=== PATIENT | female | born 1975 | race Asian ===

== ENCOUNTER 2017-01-08 20:54 | Inpatient (IN) | payer BC, OTHER ==
[~2017-01-08] VITALS: Ht 165.1 cm; Wt 49.4 kg
[2017-01-08 21:04] VITALS: BP_SYST 135
[2017-01-08] MEDS ORDERED: LORazepam 2 MG/ML VIAL (FOR ER USE) ONE (21:21)
[2017-01-08] MEDS ORDERED: LORazepam 2 MG/ML VIAL IM ONE (21:30)
[2017-01-08] MEDS ORDERED: FOLIC ACID 1 MG, THIAMINE HCL 100 MG, MAGNESIUM SULFATE 1 GM, MVI 10 ML in NACL 0.9% 1,... IV ONE (23:00)
[2017-01-08 23:04] LABS: BASOPHILS # (AUTO) 0.2 K/uL (0.0-0.2); BASOPHILS % (AUTO) 1.4 % (0.0-2.0); HEMATOCRIT 44.8 % (36-48); HEMOGLOBIN 14.7 g/dL (12.0-16.0); LYMPHOCYTES # (AUTO) 1.5 K/uL (1.0-5.5); LYMPHOCYTES % (AUTO) 8.7 % (20.5-51.5); MEAN CORPUSCULAR HEMOGLOBIN 31 pg (27-31); MEAN CORPUSCULAR HGB CONC 33 % (32-36); MEAN CORPUSCULAR VOLUME 93 fL (79.0-98.0); MONOCYTES # (AUTO) 0.5 K/uL (0.0-1.0); MONOCYTES % (AUTO) 2.9 % (1.7-9.3); NEUTROPHILS # (AUTO) 15.1 K/uL (1.8-7.7); PLATELET COUNT (AUTO) 221 K/uL (130-430); RED BLOOD CELL COUNT(AUTO) 4.83 MIL/uL (4.2-6.2); RED CELL DISTRIBUTION WIDTH 12.2 % (9.0-15.0); WHITE BLOOD COUNT (AUTO) 17.3 K/uL (4.8-10.8)
[2017-01-08] MEDS ORDERED: THIAMINE HCL 100 MG/ML VIAL ONE (23:12)
[2017-01-08] MEDS ORDERED: MAGNESIUM SULFATE 1 GM/2 ML VIAL ONE (23:12)
[2017-01-08] MEDS ORDERED: FOLIC ACID 5 MG/ML VIAL IV ONE (23:12)
[2017-01-08] MEDS ORDERED: MVI 10 ML VIAL IV ONE (23:12)
[2017-01-08 23:24] LABS: BILIRUBIN,URINE NEGATIVE (NEGATIVE); BLOOD, URINE NEGATIVE (NEGATIVE); CLARITY/URINE HAZY (CLEAR); COLOR,URINE AMBER (YELLOW); GLUCOSE,URINE NEGATIVE (NEGATIVE); KETONES,URINE 3+ (NEGATIVE); LEUKOCYTE ESTERASE ,URINE TRACE (NEGATIVE); NITRITE, URINE NEGATIVE (NEGATIVE); PH,URINE 6.5 (5.0-8.0); PROTEIN URINE 2+ (NEGATIVE); UROBILINOGEN,URINE 0.2 (0.2-1.0)
[2017-01-08 23:39] LABS: ALBUMIN 3.9 g/dL (3.4-4.8); CALCIUM 9.1 mg/dL (8.4-11.0); CREATININE 0.85 mg/dL (0.55-1.30); POTASSIUM 3.8 mmol/L (3.5-5.1); TOTAL BILIRUBIN 0.5 mg/dL (0.0-1.0)
[2017-01-08 23:48] LABS: BENZODIAZEPINE, URINE POSITIVE (NEG <=150); CANNABINOID, URINE POSITIVE (NEG <=50)
[2017-01-08 23:49] LABS: BARBITURATE, URINE NEGATIVE (NEG <=200); COCAINE, URINE NEGATIVE (NEG <=150); METHAMPHETAMINES SCREEN,URINE NEGATIVE (NEG <=500); OPIATE, URINE NEGATIVE (NEG <=100); PHENCYCLIDINE SCREEN,URINE NEGATIVE (NEG <=25); UR TRICYCLIC ANTIDEPRESSANTS POSITIVE (NEG <=300); URINE AMPHETAMINE NEGATIVE (NEG <=500); URINE METHADONE NEGATIVE (NEG <=200); URINE OXYCODONE SCREEN NEGATIVE (NEG <=100); URINE PROPOXYPHENE SCREEN NEGATIVE (NEG <=300)
[2017-01-09 00:12] LABS: BACTERIA,URINE MODERATE /HPF (None Seen); MUCUS,URINE None Seen /LPF (None Seen); RBC,URINE 0-3 /HPF (0-3); WBC,URINE 0-3 /HPF (0-3)
[2017-01-09 00:36] LABS: INR 1.2 (0.8-1.2); PROTHROMBIN TIME 12.6 SECS (9.5-12.5)
[2017-01-09] MEDS ORDERED: NORT10CA PO (01:07)
[2017-01-09] MEDS ORDERED: DULO20CA PO (01:07)
[2017-01-09] MEDS ORDERED: BUPR1FIL SL (01:07)
[2017-01-09] MEDS ORDERED: cefTRIAXone 1 GM VIAL ONE (01:12)
[2017-01-09] MEDS ORDERED: cefTRIAXone 1 GM in D5W 50 ML IV ONE (01:15)
[2017-01-09 01:50] VITALS: BP_SYST 120
[2017-01-09] MEDS ORDERED: NACL 0.9% 1,000 ML IV ONE (02:00)
[2017-01-09 04:36] VITALS: BP_SYST 119
[2017-01-09] MEDS: NACL 0.9% 1,000 ML IV SCH ×2 (04:45→11:10)
[2017-01-09 08:15] VITALS: BP_SYST 131
[2017-01-09] MEDS ORDERED: POTASSIUM CHLORIDE 20 MEQ TAB.PRT.SR PO PRN (09:00)
[2017-01-09] MEDS ORDERED: DOCUSATE SODIUM 100 MG CAPSULE PO PRN (09:00)
[2017-01-09] MEDS ORDERED: MAGNESIUM SULFATE 50 ML IV PRN (09:00)
[2017-01-09] MEDS ORDERED: ZOLPIDEM TARTRATE 5 MG TABLET PO PRN (09:00)
[2017-01-09] MEDS ORDERED: ONDANSETRON HCL 4 MG/2 ML VIAL IVP PRN (09:00)
[2017-01-09] MEDS: cefTRIAXone 1 GM in D5W 50 ML IV SCH (11:09)
[2017-01-09 12:07] VITALS: BP_SYST 125
[2017-01-09] MEDS: DULoxetine HCL 20 MG CAPSULE.DR PO SCH (16:00)
[2017-01-09] MEDS: MORPHINE 2 MG/ML INJ. SYRINGE IVP PRN ×2 (16:00→21:30)
[2017-01-09 16:18] VITALS: BP_SYST 119
[2017-01-09] MEDS: LORazepam 2 MG/ML VIAL IVP PRN ×2 (18:06→20:42)
[2017-01-09 20:00] VITALS: BP_SYST 120
[2017-01-09] MEDS: NORTRIPTYLINE HCL 10 MG CAPSULE PO SCH (20:41)
[2017-01-10] MEDS: LORazepam 2 MG/ML VIAL IVP PRN ×3 (01:51→22:00)
[2017-01-10] MEDS: NACL 0.9% 1,000 ML IV SCH ×3 (01:51→17:03)
[2017-01-10] MEDS: MORPHINE 2 MG/ML INJ. SYRINGE IVP PRN ×4 (03:00→22:01)
[2017-01-10 03:01] VITALS: BP_SYST 129
[2017-01-10 04:00] VITALS: BP_SYST 125
[2017-01-10 07:53] LABS: BASOPHILS # (AUTO) 0.1 K/uL (0.0-0.2); BASOPHILS % (AUTO) 0.6 % (0.0-2.0); EOSINOPHILS # (AUTO) 0.2 K/uL (0.0-0.4); EOSINOPHILS % (AUTO) 1.6 % (0.0-4.0); HEMATOCRIT 40.4 % (36-48); HEMOGLOBIN 13.6 g/dL (12.0-16.0); LYMPHOCYTES # (AUTO) 3.8 K/uL (1.0-5.5); LYMPHOCYTES % (AUTO) 32.3 % (20.5-51.5); MEAN CORPUSCULAR HEMOGLOBIN 32 pg (27-31); MEAN CORPUSCULAR HGB CONC 34 % (32-36); MEAN CORPUSCULAR VOLUME 95 fL (79.0-98.0); MONOCYTES # (AUTO) 0.8 K/uL (0.0-1.0); NEUTROPHILS # (AUTO) 6.9 K/uL (1.8-7.7); NEUTROPHILS % (AUTO) 58.5 % (40.0-70.0); PLATELET COUNT (AUTO) 147 K/uL (130-430); RED BLOOD CELL COUNT(AUTO) 4.27 MIL/uL (4.2-6.2); RED CELL DISTRIBUTION WIDTH 12.6 % (9.0-15.0); WHITE BLOOD COUNT (AUTO) 11.8 K/uL (4.8-10.8)
[2017-01-10 08:05] LABS: CALCIUM 8.4 mg/dL (8.4-11.0); CREATININE 0.64 mg/dL (0.55-1.30); POTASSIUM 3.6 mmol/L (3.5-5.1)
[2017-01-10 08:20] VITALS: BP_SYST 149
[2017-01-10] MEDS: QUEtiapine FUMARATE 25 MG TABLET PO SCH ×3 (10:22→22:01)
[2017-01-10] MEDS: DULoxetine HCL 20 MG CAPSULE.DR PO SCH (10:22)
[2017-01-10] MEDS: cefTRIAXone 1 GM in D5W 50 ML IV SCH (11:29)
[2017-01-10 12:42] VITALS: BP_SYST 143
[2017-01-10 16:36] VITALS: BP_SYST 139
[2017-01-10 20:00] VITALS: BP_SYST 114
[2017-01-10] MEDS: NORTRIPTYLINE HCL 10 MG CAPSULE PO SCH (22:01)
[2017-01-11] VITALS: BP_SYST 144
[2017-01-11 04:00] VITALS: BP_SYST 141
[2017-01-11] MEDS: NACL 0.9% 1,000 ML IV SCH ×2 (05:21→16:03)
[2017-01-11] MEDS: MORPHINE 2 MG/ML INJ. SYRINGE IVP PRN ×3 (05:22→20:08)
[2017-01-11 07:19] LABS: BASOPHILS % (AUTO) 0.5 % (0.0-2.0); EOSINOPHILS # (AUTO) 0.2 K/uL (0.0-0.4); EOSINOPHILS % (AUTO) 2.5 % (0.0-4.0); HEMOGLOBIN 12.2 g/dL (12.0-16.0); LYMPHOCYTES # (AUTO) 2.3 K/uL (1.0-5.5); LYMPHOCYTES % (AUTO) 35.2 % (20.5-51.5); MEAN CORPUSCULAR HEMOGLOBIN 31 pg (27-31); MEAN CORPUSCULAR HGB CONC 34 % (32-36); MEAN CORPUSCULAR VOLUME 93 fL (79.0-98.0); MONOCYTES # (AUTO) 0.4 K/uL (0.0-1.0); MONOCYTES % (AUTO) 6.7 % (1.7-9.3); NEUTROPHILS # (AUTO) 3.7 K/uL (1.8-7.7); NEUTROPHILS % (AUTO) 55.1 % (40.0-70.0); PLATELET COUNT (AUTO) 131 K/uL (130-430); RED BLOOD CELL COUNT(AUTO) 3.88 MIL/uL (4.2-6.2); RED CELL DISTRIBUTION WIDTH 12.4 % (9.0-15.0); WHITE BLOOD COUNT (AUTO) 6.6 K/uL (4.8-10.8)
[2017-01-11 07:41] LABS: ALBUMIN 3.3 g/dL (3.4-4.8); BILIRUBIN,DIRECT 0.1 mg/dL (0.0-0.3); CREATININE 0.53 mg/dL (0.55-1.30); POTASSIUM 3.8 mmol/L (3.5-5.1); TOTAL BILIRUBIN 0.4 mg/dL (0.0-1.0)
[2017-01-11 08:00] VITALS: BP_SYST 143
[2017-01-11] MEDS: DULoxetine HCL 20 MG CAPSULE.DR PO SCH (08:35)
[2017-01-11] MEDS: QUEtiapine FUMARATE 25 MG TABLET PO SCH ×3 (08:36→20:07)
[2017-01-11] MEDS: LORazepam 2 MG/ML VIAL IVP PRN ×2 (08:37→22:30)
[2017-01-11] MEDS: cefTRIAXone 1 GM in D5W 50 ML IV SCH (10:23)
[2017-01-11 11:53] VITALS: BP_SYST 135
[2017-01-11 16:01] VITALS: BP_SYST 153
[2017-01-11] MEDS: NORTRIPTYLINE HCL 10 MG CAPSULE PO SCH (20:07)
[2017-01-11 23:52] VITALS: BP_SYST 150
[2017-01-12] MEDS: NACL 0.9% 1,000 ML IV SCH (03:41)
[2017-01-12] MEDS: MORPHINE 2 MG/ML INJ. SYRINGE IVP PRN ×3 (04:45→11:02)
[2017-01-12] MEDS: LORazepam 2 MG/ML VIAL IVP PRN (05:58)
[2017-01-12 06:40] LABS: BASOPHILS % (AUTO) 0.7 % (0.0-2.0); EOSINOPHILS # (AUTO) 0.2 K/uL (0.0-0.4); EOSINOPHILS % (AUTO) 3.1 % (0.0-4.0); HEMOGLOBIN 11.5 g/dL (12.0-16.0); LYMPHOCYTES # (AUTO) 2.5 K/uL (1.0-5.5); MEAN CORPUSCULAR HEMOGLOBIN 32 pg (27-31); MEAN CORPUSCULAR HGB CONC 34 % (32-36); MEAN CORPUSCULAR VOLUME 94 fL (79.0-98.0); MONOCYTES # (AUTO) 0.4 K/uL (0.0-1.0); MONOCYTES % (AUTO) 6.2 % (1.7-9.3); NEUTROPHILS # (AUTO) 3.7 K/uL (1.8-7.7); PLATELET COUNT (AUTO) 121 K/uL (130-430); RED BLOOD CELL COUNT(AUTO) 3.64 MIL/uL (4.2-6.2); RED CELL DISTRIBUTION WIDTH 12.1 % (9.0-15.0); WHITE BLOOD COUNT (AUTO) 6.8 K/uL (4.8-10.8)
[2017-01-12 06:50] LABS: PROTHROMBIN TIME 10.5 SECS (9.5-12.5)
[2017-01-12 06:54] LABS: CALCIUM 7.8 mg/dL (8.4-11.0); CREATININE 0.53 mg/dL (0.55-1.30); POTASSIUM 4.1 mmol/L (3.5-5.1)
[2017-01-12 07:29] LABS: TOTAL IRON BIND. CAPACITY 160 ug/dL (250-450)
[2017-01-12 08:00] VITALS: BP_SYST 147
[2017-01-12] MEDS: DULoxetine HCL 20 MG CAPSULE.DR PO SCH (08:57)
[2017-01-12] MEDS: QUEtiapine FUMARATE 25 MG TABLET PO SCH (08:58)
[2017-01-12] MEDS: cefTRIAXone 1 GM in D5W 50 ML IV SCH (11:01)
[2017-01-12 11:20] VITALS: BP_SYST 150
[2017-01-12 12:00] VITALS: BP_SYST 150
[2017-01-13 07:21] LABS: HEPATITIS A AB, IgM Negative (Negative); HEPATITIS B CORE AB, IgM Negative (Negative); HEPATITIS B SURFACE AG Negative (Negative)
[2017-01-13 20:11] LABS: FERRITIN 329 ng/mL (15-150)
== END 2017-01-12 13:00 | disposition home or self-care (01) | DRG 872 ==
LOC: SED 20:54 → STU 01-09 01:22
PROVIDERS: ADMIT General Practice; ATTEND General Practice
DX: A41.9 Sepsis, unspecified organism (principal); E44.0 Moderate protein-calorie malnutrition; K72.90 Hepatic failure, unspecified without coma; N39.0 Urinary tract infection, site not specified; Z68.1 Body mass index [BMI] 19.9 or less, adult; F32.9 Major depressive disorder, single episode, unspecified; F41.9 Anxiety disorder, unspecified; G62.9 Polyneuropathy, unspecified; F14.90 Cocaine use, unspecified, uncomplicated; F12.90 Cannabis use, unspecified, uncomplicated; F19.10 Other psychoactive substance abuse, uncomplicated; E78.5 Hyperlipidemia, unspecified
CPT/HCPCS: 36415; 71010; 76700-TC; 80048; 80053; 80074; 80076; 80307; 81000-TC; 82140-TC; 82390; 82550-TC; 82728; 83516; 83540-TC; 83550-TC; 83605; 83735-TC; 84702-TC; 85025; 85610-TC; 85730-TC; 86256; 87040-TC; 87086; 93005; 96365; 96367; 99285; G0480; G0481; J0696; J2060; J2270; J3411; J3475; J3490; J7030; J7060

== ENCOUNTER 2017-04-08 12:07 | Inpatient (IN) | payer BC ==
[~2017-04-08] VITALS: Ht 167.6 cm; Wt 60.8 kg
[~2017-04-08 12:07] MED LIST: BUPR1FIL SL; DULO20CA PO; NORT10CA PO
[2017-04-08 12:14] VITALS: BP_SYST 92
[2017-04-08] MEDS ORDERED: NACL 0.9% 1,000 ML IV SCH (12:48)
[2017-04-08] MEDS ORDERED: KETOROLAC TROMETHAMINE 30 MG VIAL IVP ONE (13:00)
[2017-04-08] MEDS ORDERED: DIPH-TET-PERTUS Vaccine 0.5 ML VIAL (ADACEL) I.M. ONE (13:00)
[2017-04-08] MEDS ORDERED: VANCOMYCIN HCL 1,000 MG in D5W 250 ML IV ONE (13:00)
[2017-04-08 13:01] LABS: HEMATOCRIT 31.8 % (36-48); RED CELL DISTRIBUTION WIDTH 12.3 % (9.0-15.0)
[2017-04-08] MEDS ORDERED: VANCOMYCIN HCL 1000 MG/VIAL IV ONE (13:01)
[2017-04-08 13:08] LABS: HEMOGLOBIN 10.6 g/dL (12.0-16.0); MEAN CORPUSCULAR HEMOGLOBIN 31 pg (27-31); MEAN CORPUSCULAR HGB CONC 33 % (32-36); MEAN CORPUSCULAR VOLUME 92 fL (79.0-98.0); PLATELET COUNT (AUTO) 250 K/uL (130-430); RED BLOOD CELL COUNT(AUTO) 3.47 MIL/uL (4.2-6.2)
[2017-04-08 13:09] LABS: CLARITY/URINE SLHAZY (CLEAR); COLOR,URINE YELLOW (YELLOW); PH,URINE 5.5 (5.0-8.0)
[2017-04-08 13:10] LABS: BILIRUBIN,URINE NEGATIVE (NEGATIVE); BLOOD, URINE NEGATIVE (NEGATIVE); GLUCOSE,URINE 3+ (NEGATIVE); KETONES,URINE NEGATIVE (NEGATIVE); LEUKOCYTE ESTERASE ,URINE NEGATIVE (NEGATIVE); NITRITE, URINE NEGATIVE (NEGATIVE); PROTEIN URINE NEGATIVE (NEGATIVE); UROBILINOGEN,URINE 0.2 (0.2-1.0)
[2017-04-08 13:17] LABS: BACTERIA,URINE FEW /HPF (None Seen); WBC,URINE 0-3 /HPF (0-3)
[2017-04-08 13:21] LABS: CALCIUM OXALATE CRYSTALS,UR None Seen /HPF (None Seen); CALCIUM PHOSPHATE CRYSTALS,UR None Seen /HPF (None Seen); COARSE GRANULAR CASTS,URINE None Seen /LPF (None Seen); FINE GRANULAR CASTS,URINE None Seen /LPF (None Seen); HYALINE CASTS, URINE None Seen /LPF (None Seen); MUCUS,URINE None Seen /LPF (None Seen); OTHER CASTS, URINE None Seen /LPF (None Seen); OTHER CRYSTALS,URINE None Seen /HPF (None Seen); TRICHOMONAS,URINE None Seen /HPF (None Seen); TRIPLE PHOSPHATE CRYSTAL,UR None Seen /HPF (None Seen); URIC ACID CRYSTALS,URINE None Seen /HPF (None Seen); URINE AMORPHOUS PHOSPHATES None Seen /HPF (None Seen); URINE AMORPHOUS URATE None Seen /HPF (None Seen); WAXY CASTS,URINE None Seen /LPF (None Seen); YEAST,URINE None Seen /HPF (None Seen)
[2017-04-08 13:23] LABS: ALBUMIN 2.6 g/dL (3.4-4.8); CALCIUM 8.2 mg/dL (8.4-11.0); CREATININE 1.2 mg/dL (0.55-1.30); POTASSIUM 3.9 mmol/L (3.5-5.1); TOTAL BILIRUBIN 0.2 mg/dL (0.0-1.0)
[2017-04-08 13:29] LABS: PROTHROMBIN TIME 9.9 SECS (9.5-12.5)
[2017-04-08] MEDS ORDERED: NACL 0.9% 1,000 ML IV ONE (13:30)
[2017-04-08 13:37] LABS: BAND % (MANUAL) 3 % (0-6); BASOPHILS % (MANUAL) 0 % (0-2); EOSINOPHILS % (MANUAL) 0 % (0-7); LYMPHOCYTES % (MANUAL) 10 % (20-46); MONOCYTES % (MANUAL) 5 % (0-11)
[2017-04-08] MEDS ORDERED: DULO60CA41 PO (14:10)
[2017-04-08] MEDS ORDERED: QUET400T PO (14:10)
[2017-04-08] MEDS ORDERED: SER25 PO (14:10)
[2017-04-08] MEDS ORDERED: MORPHINE 2 MG/ML INJ. SYRINGE IVP ONE (14:45)
[2017-04-08] MEDS ORDERED: INSULIN ASPART 100 UNITS/ML, 10 ML VIAL SUBCUT ONE (15:00)
[2017-04-08] MEDS ORDERED: DEXTROSE 50% JECT 50 ML DISP.SYRIN IVP PRN (15:00)
[2017-04-08] MEDS ORDERED: INSULIN REGULAR, HUMAN 10 UNITS/0.1 ML INJ IVP ONE (15:00)
[2017-04-08] MEDS ORDERED: INSULIN REGULAR, HUMAN 100 UNITS/ML, 10 ML VIAL (novoLIN R) SUBCUT PRN (15:00)
[2017-04-08 15:51] VITALS: BP_SYST 102
[2017-04-08] MEDS ORDERED: LORazepam 1 MG TABLET PO PRN (16:45)
[2017-04-08] MEDS ORDERED: ONDANSETRON HCL 4 MG/2 ML VIAL IVP PRN (16:45)
[2017-04-08] MEDS ORDERED: ACETAMINOPHEN 650 MG/20.3 ML UDC PO PRN (16:45)
[2017-04-08] MEDS ORDERED: HYDROcodone/ACETAMIN 5-325 MG TAB (NORCO/ VICODIN) PO PRN (17:00)
[2017-04-08] MEDS ORDERED: metroNIDAZOLE 500 mg/NS 100 ML IV SCH (17:00)
[2017-04-08] MEDS ORDERED: FAMOTIDINE 20 MG TABLET PO ONE (17:15)
[2017-04-08] MEDS: POTASSIUM CHLORIDE 10 MEQ in NACL 0.9% 1,000 ML IV SCH (17:28)
[2017-04-08] MEDS: HYDROcodone/ACETAMIN 10-325 MG TAB PO PRN ×2 (17:49→23:59)
[2017-04-08 18:15] VITALS: BP_SYST 109
[2017-04-08] MEDS: MORPHINE 2 MG/ML INJ. SYRINGE IVP PRN (19:06)
[2017-04-08 20:01] VITALS: BP_SYST 112
[2017-04-08] MEDS ORDERED: CLINDAMYCIN 600 mg/50mL D5W 100 ML IV ONE (20:53)
[2017-04-08] MEDS ORDERED: CEFEPIME 1 GM/VIAL (MAXIPIME) ONE (20:54)
[2017-04-08] MEDS ORDERED: QUEtiapine FUMARATE 100 MG TABLET PO SCH (21:00)
[2017-04-08] MEDS: DULoxetine HCL 30 MG CAPSULE.DR (CYMBALTA) PO SCH (21:00)
[2017-04-08] MEDS: QUEtiapine FUMARATE 25 MG TABLET PO SCH (21:21)
[2017-04-08] MEDS: CEFEPIME 2 GM in D5W 100 ML IV SCH (21:21)
[2017-04-08] MEDS: INSULIN ASPART 100 UNITS/ML, 10 ML VIAL (NovoLOG) SUBCUT PRN (21:25)
[2017-04-08] MEDS: CLINDAMYCIN 600 MG in D5W 50 ML IV SCH (23:58)
[2017-04-09 00:14] VITALS: BP_SYST 106
[2017-04-09] MEDS: MORPHINE 2 MG/ML INJ. SYRINGE IVP PRN ×3 (02:18→13:14)
[2017-04-09] MEDS: POTASSIUM CHLORIDE 10 MEQ in NACL 0.9% 1,000 ML IV SCH ×2 (05:18→08:49)
[2017-04-09] MEDS: CLINDAMYCIN 600 MG in D5W 50 ML IV SCH ×4 (06:01→23:43)
[2017-04-09] MEDS: HYDROcodone/ACETAMIN 10-325 MG TAB PO PRN ×3 (06:02→23:43)
[2017-04-09] MEDS: INSULIN ASPART 100 UNITS/ML, 10 ML VIAL (NovoLOG) SUBCUT PRN ×3 (06:05→21:00)
[2017-04-09 07:15] LABS: BASOPHILS % (AUTO) 0.2 % (0.0-2.0); EOSINOPHILS # (AUTO) 0.2 K/uL (0.0-0.4); EOSINOPHILS % (AUTO) 1.1 % (0.0-4.0); HEMATOCRIT 30.8 % (36-48); HEMOGLOBIN 10.2 g/dL (12.0-16.0); LYMPHOCYTES # (AUTO) 1.4 K/uL (1.0-5.5); LYMPHOCYTES % (AUTO) 9.9 % (20.5-51.5); MEAN CORPUSCULAR HEMOGLOBIN 31 pg (27-31); MEAN CORPUSCULAR HGB CONC 33 % (32-36); MEAN CORPUSCULAR VOLUME 92 fL (79.0-98.0); MONOCYTES % (AUTO) 6.8 % (1.7-9.3); NEUTROPHILS # (AUTO) 11.5 K/uL (1.8-7.7); PLATELET COUNT (AUTO) 265 K/uL (130-430); RED BLOOD CELL COUNT(AUTO) 3.34 MIL/uL (4.2-6.2); RED CELL DISTRIBUTION WIDTH 12.7 % (9.0-15.0); WHITE BLOOD COUNT (AUTO) 14.1 K/uL (4.8-10.8)
[2017-04-09 07:44] LABS: ALBUMIN 2.1 g/dL (3.4-4.8); BILIRUBIN,DIRECT 0.1 mg/dL (0.0-0.3); CREATININE 0.73 mg/dL (0.55-1.30); POTASSIUM 4.7 mmol/L (3.5-5.1); THYROID STIMULATING HORMONE 0.18 uIu/mL (0.34-4.82); TOTAL BILIRUBIN 0.1 mg/dL (0.0-1.0)
[2017-04-09 07:59] VITALS: BP_SYST 120
[2017-04-09] MEDS: DULoxetine HCL 30 MG CAPSULE.DR (CYMBALTA) PO SCH (09:18)
[2017-04-09] MEDS: QUEtiapine FUMARATE 25 MG TABLET PO SCH ×2 (09:19→20:46)
[2017-04-09] MEDS: CEFEPIME 2 GM in D5W 100 ML IV SCH ×2 (09:19→20:52)
[2017-04-09] MEDS: FAMOTIDINE 20 MG TABLET PO SCH (09:19)
[2017-04-09 10:10] LABS: BARBITURATE, URINE NEGATIVE (NEG <=200); BENZODIAZEPINE, URINE NEGATIVE (NEG <=150); CANNABINOID, URINE POSITIVE (NEG <=50); COCAINE, URINE NEGATIVE (NEG <=150); METHAMPHETAMINES SCREEN,URINE NEGATIVE (NEG <=500); OPIATE, URINE POSITIVE (NEG <=100); PHENCYCLIDINE SCREEN,URINE NEGATIVE (NEG <=25); UR TRICYCLIC ANTIDEPRESSANTS POSITIVE (NEG <=300); URINE AMPHETAMINE NEGATIVE (NEG <=500); URINE METHADONE NEGATIVE (NEG <=200); URINE OXYCODONE SCREEN NEGATIVE (NEG <=100); URINE PROPOXYPHENE SCREEN NEGATIVE (NEG <=300)
[2017-04-09] MEDS: VANCOMYCIN HCL 750 MG in NS 250 ML IV SCH ×2 (10:11→20:47)
[2017-04-09] MEDS ORDERED: MORPHINE 2 MG/ML INJ. SYRINGE IVP ONE (11:30)
[2017-04-09 12:00] VITALS: BP_SYST 123
[2017-04-09] MEDS ORDERED: DULO60CA41 PO (14:13)
[2017-04-09 14:15] LABS: HEPATITIS A AB, IgM Negative (Negative); HEPATITIS B CORE AB, IgM Negative (Negative); HEPATITIS B SURFACE AG Negative (Negative)
[2017-04-09] MEDS ORDERED: fentaNYL CITRATE/PF 100 MCG/2 ML AMP IVP PRN ×2 (15:30)
[2017-04-09] MEDS ORDERED: HYDROmorphone 2 MG/ML VIAL IVP PRN (15:30)
[2017-04-09] MEDS ORDERED: PROPOFOL 200MG/ 20ML VIAL (DIPRIVAN) IV ONE (15:34)
[2017-04-09] MEDS ORDERED: LR 1,000 ML IV.SOLN IV ONE (15:34)
[2017-04-09] MEDS ORDERED: fentaNYL CITRATE/PF 100 MCG/2 ML AMP IVP ONE (15:34)
[2017-04-09] MEDS ORDERED: MIDAZOLAM HCL 5 MG/ML VIAL (VERSED) IV ONE (15:34)
[2017-04-09] MEDS ORDERED: NS IRRIG SOLN 1000 ML IR ONE (15:34)
[2017-04-09] MEDS ORDERED: fentaNYL CITRATE/PF 100 MCG/2 ML AMP ONE (15:52)
[2017-04-09 16:08] VITALS: BP_SYST 145
[2017-04-09 16:17] VITALS: BP_SYST 145
[2017-04-09 19:30] VITALS: BP_SYST 146
[2017-04-09] MEDS: QUEtiapine FUMARATE 100 MG TABLET PO SCH (20:46)
[2017-04-09] MEDS: HYDROmorphone 2 MG/ML VIAL IVP PRN (21:00)
[2017-04-10 00:44] VITALS: BP_SYST 124
[2017-04-10] MEDS: HYDROmorphone 2 MG/ML VIAL IVP PRN ×6 (00:58→22:52)
[2017-04-10] MEDS: POTASSIUM CHLORIDE 10 MEQ in NACL 0.9% 1,000 ML IV SCH ×2 (02:19→16:32)
[2017-04-10] MEDS: CLINDAMYCIN 600 MG in D5W 50 ML IV SCH ×3 (05:09→17:40)
[2017-04-10] MEDS: HYDROcodone/ACETAMIN 10-325 MG TAB PO PRN ×3 (05:41→17:40)
[2017-04-10 06:14] LABS: BASOPHILS % (AUTO) 0.2 % (0.0-2.0); EOSINOPHILS # (AUTO) 0.2 K/uL (0.0-0.4); EOSINOPHILS % (AUTO) 1.9 % (0.0-4.0); HEMATOCRIT 29.7 % (36-48); HEMOGLOBIN 10.1 g/dL (12.0-16.0); LYMPHOCYTES # (AUTO) 2.2 K/uL (1.0-5.5); LYMPHOCYTES % (AUTO) 19.8 % (20.5-51.5); MEAN CORPUSCULAR HEMOGLOBIN 31 pg (27-31); MEAN CORPUSCULAR HGB CONC 34 % (32-36); MEAN CORPUSCULAR VOLUME 91 fL (79.0-98.0); MONOCYTES # (AUTO) 1.1 K/uL (0.0-1.0); MONOCYTES % (AUTO) 10.4 % (1.7-9.3); NEUTROPHILS # (AUTO) 7.4 K/uL (1.8-7.7); NEUTROPHILS % (AUTO) 67.7 % (40.0-70.0); PLATELET COUNT (AUTO) 285 K/uL (130-430); RED BLOOD CELL COUNT(AUTO) 3.27 MIL/uL (4.2-6.2); RED CELL DISTRIBUTION WIDTH 12.5 % (9.0-15.0); WHITE BLOOD COUNT (AUTO) 10.9 K/uL (4.8-10.8)
[2017-04-10 06:24] LABS: ALBUMIN 1.9 g/dL (3.4-4.8); CALCIUM 8.1 mg/dL (8.4-11.0); CREATININE 0.42 mg/dL (0.55-1.30); TOTAL BILIRUBIN 0.2 mg/dL (0.0-1.0)
[2017-04-10 08:00] VITALS: BP_SYST 133
[2017-04-10] MEDS: QUEtiapine FUMARATE 25 MG TABLET PO SCH ×2 (09:30→21:17)
[2017-04-10] MEDS: DULoxetine HCL 30 MG CAPSULE.DR (CYMBALTA) PO SCH ×2 (09:30→21:17)
[2017-04-10] MEDS: CEFEPIME 2 GM in D5W 100 ML IV SCH (09:30)
[2017-04-10] MEDS: FAMOTIDINE 20 MG TABLET PO SCH (09:30)
[2017-04-10] MEDS: VANCOMYCIN HCL 750 MG in NS 250 ML IV SCH ×2 (10:31→22:33)
[2017-04-10] MEDS: INSULIN ASPART 100 UNITS/ML, 10 ML VIAL (NovoLOG) SUBCUT PRN ×2 (11:58→21:27)
[2017-04-10 12:21] VITALS: BP_SYST 129
[2017-04-10 16:00] VITALS: BP_SYST 158
[2017-04-10 19:50] VITALS: BP_SYST 161
[2017-04-10 20:15] VITALS: BP_SYST 136
[2017-04-10] MEDS: QUEtiapine FUMARATE 100 MG TABLET PO SCH (21:17)
[2017-04-10] MEDS: CEFEPIME 2 GM in NS 100 ML IV SCH (21:29)
[2017-04-11] MEDS: CLINDAMYCIN 600 MG in D5W 50 ML IV SCH ×4 (00:48→17:30)
[2017-04-11 01:31] VITALS: BP_SYST 132
[2017-04-11] MEDS: HYDROmorphone 2 MG/ML VIAL IVP PRN ×5 (02:59→20:02)
[2017-04-11] MEDS: HYDROcodone/ACETAMIN 10-325 MG TAB PO PRN ×2 (05:31→17:47)
[2017-04-11] MEDS: POTASSIUM CHLORIDE 10 MEQ in NACL 0.9% 1,000 ML IV SCH (05:35)
[2017-04-11 06:42] LABS: BASOPHILS % (AUTO) 0.3 % (0.0-2.0); EOSINOPHILS # (AUTO) 0.1 K/uL (0.0-0.4); EOSINOPHILS % (AUTO) 0.9 % (0.0-4.0); HEMATOCRIT 33.6 % (36-48); HEMOGLOBIN 10.7 g/dL (12.0-16.0); LYMPHOCYTES # (AUTO) 1.8 K/uL (1.0-5.5); LYMPHOCYTES % (AUTO) 16.1 % (20.5-51.5); MEAN CORPUSCULAR HEMOGLOBIN 29 pg (27-31); MEAN CORPUSCULAR HGB CONC 32 % (32-36); MEAN CORPUSCULAR VOLUME 91 fL (79.0-98.0); MONOCYTES # (AUTO) 0.9 K/uL (0.0-1.0); MONOCYTES % (AUTO) 7.5 % (1.7-9.3); NEUTROPHILS # (AUTO) 8.6 K/uL (1.8-7.7); PLATELET COUNT (AUTO) 368 K/uL (130-430); RED BLOOD CELL COUNT(AUTO) 3.68 MIL/uL (4.2-6.2); RED CELL DISTRIBUTION WIDTH 12.5 % (9.0-15.0); WHITE BLOOD COUNT (AUTO) 11.4 K/uL (4.8-10.8)
[2017-04-11 07:09] LABS: CALCIUM 8.2 mg/dL (8.4-11.0); CREATININE 0.42 mg/dL (0.55-1.30); POTASSIUM 4.1 mmol/L (3.5-5.1)
[2017-04-11 07:36] LABS: TOTAL IRON BIND. CAPACITY 126 ug/dL (250-450)
[2017-04-11 08:46] VITALS: BP_SYST 128
[2017-04-11] MEDS: DULoxetine HCL 30 MG CAPSULE.DR (CYMBALTA) PO SCH ×2 (08:50→21:46)
[2017-04-11] MEDS: QUEtiapine FUMARATE 25 MG TABLET PO SCH ×2 (08:50→21:46)
[2017-04-11] MEDS: CEFEPIME 2 GM in NS 100 ML IV SCH ×2 (08:51→21:46)
[2017-04-11] MEDS: FAMOTIDINE 20 MG TABLET PO SCH (08:51)
[2017-04-11] MEDS ORDERED: VANCOMYCIN HCL 1,250 MG in NS 250 ML IV SCH (10:00)
[2017-04-11 10:18] LABS: NEUTROPHILS % (AUTO) 75.2 % (40.0-70.0)
[2017-04-11] MEDS: INSULIN ASPART 100 UNITS/ML, 10 ML VIAL (NovoLOG) SUBCUT PRN ×2 (11:18→21:55)
[2017-04-11 11:26] VITALS: BP_SYST 148
[2017-04-11 15:36] VITALS: BP_SYST 136
[2017-04-11] MEDS: BALSAM PERU/CASTOR OIL 60 GM OINT...G. TP SCH (17:32)
[2017-04-11] MEDS: VANCOMYCIN HCL 1,250 MG in NS 250 ML IV SCH (17:36)
[2017-04-11 20:44] VITALS: BP_SYST 137
[2017-04-11] MEDS: QUEtiapine FUMARATE 100 MG TABLET PO SCH (21:46)
[2017-04-11 23:56] VITALS: BP_SYST 124
[2017-04-12] MEDS: CLINDAMYCIN 600 MG in D5W 50 ML IV SCH ×5 (00:27→23:46)
[2017-04-12] MEDS: HYDROmorphone 2 MG/ML VIAL IVP PRN ×6 (00:27→21:55)
[2017-04-12] MEDS: VANCOMYCIN HCL 1,250 MG in NS 250 ML IV SCH ×2 (01:18→10:07)
[2017-04-12 07:35] VITALS: BP_SYST 137
[2017-04-12] MEDS: FAMOTIDINE 20 MG TABLET PO SCH (09:26)
[2017-04-12] MEDS: DULoxetine HCL 30 MG CAPSULE.DR (CYMBALTA) PO SCH ×2 (09:26→21:54)
[2017-04-12] MEDS: QUEtiapine FUMARATE 25 MG TABLET PO SCH ×2 (09:26→21:54)
[2017-04-12] MEDS: BALSAM PERU/CASTOR OIL 60 GM OINT...G. TP SCH (09:28)
[2017-04-12] MEDS: CEFEPIME 2 GM in NS 100 ML IV SCH ×2 (10:19→21:54)
[2017-04-12] MEDS: INSULIN ASPART 100 UNITS/ML, 10 ML VIAL (NovoLOG) SUBCUT PRN ×2 (11:18→17:12)
[2017-04-12 12:44] VITALS: BP_SYST 127
[2017-04-12 14:12] LABS: FOLATE (FOLIC ACID) 10.6 ng/mL (>3.0)
[2017-04-12] MEDS: HYDROcodone/ACETAMIN 10-325 MG TAB PO PRN (16:00)
[2017-04-12 16:49] VITALS: BP_SYST 138
[2017-04-12 17:39] VITALS: BP_SYST 138
[2017-04-12 20:47] VITALS: BP_SYST 137
[2017-04-12] MEDS: QUEtiapine FUMARATE 100 MG TABLET PO SCH (21:54)
[2017-04-13 00:02] VITALS: BP_SYST 130
[2017-04-13] MEDS: HYDROmorphone 2 MG/ML VIAL IVP PRN ×2 (03:04→07:07)
[2017-04-13 03:11] VITALS: BP_SYST 132
[2017-04-13] MEDS: CLINDAMYCIN 600 MG in D5W 50 ML IV SCH ×2 (05:55→11:49)
[2017-04-13 08:25] VITALS: BP_SYST 131
[2017-04-13] MEDS: QUEtiapine FUMARATE 25 MG TABLET PO SCH (08:29)
[2017-04-13] MEDS: FAMOTIDINE 20 MG TABLET PO SCH (08:30)
[2017-04-13] MEDS: DULoxetine HCL 30 MG CAPSULE.DR (CYMBALTA) PO SCH (08:30)
[2017-04-13] MEDS: CEFEPIME 2 GM in NS 100 ML IV SCH (08:31)
[2017-04-13] MEDS: HYDROcodone/ACETAMIN 10-325 MG TAB PO PRN (09:57)
[2017-04-13] MEDS: BALSAM PERU/CASTOR OIL 60 GM OINT...G. TP SCH (11:00)
[2017-04-13 11:52] VITALS: BP_SYST 126
[2017-04-13 11:59] VITALS: BP_SYST 122
[2017-04-13] MEDS ORDERED: HYDR-1189 PO (12:58)
[2017-04-13] MEDS ORDERED: METF-795 PO (13:00)
[2017-04-13 14:28] VITALS: BP_SYST 122
== END 2017-04-13 15:10 | disposition home or self-care (01) | DRG 853 ==
LOC: SED 12:07 → STU 14:59 → SMU 04-13 11:40
PROVIDERS: ADMIT Internal Medicine; ATTEND Internal Medicine
PROC: 0JBH0ZZ Excision of Left Lower Arm Subcutaneous Tissue and Fascia, Open Approach (ICD-10-PCS; principal; 2017-04-09 15:00)
DX: A41.9 Sepsis, unspecified organism (principal); M72.6 Necrotizing fasciitis; E43 Unspecified severe protein-calorie malnutrition; L02.414 Cutaneous abscess of left upper limb; L03.114 Cellulitis of left upper limb; E87.1 Hypo-osmolality and hyponatremia; F19.10 Other psychoactive substance abuse, uncomplicated; F32.9 Major depressive disorder, single episode, unspecified; E78.5 Hyperlipidemia, unspecified; F41.9 Anxiety disorder, unspecified; E11.65 Type 2 diabetes mellitus with hyperglycemia; F17.210 Nicotine dependence, cigarettes, uncomplicated; Z68.21 Body mass index [BMI] 21.0-21.9, adult
CPT/HCPCS: 36415; 71045; 73200-TC; 80048; 80053; 80074; 80076; 80202-TC; 80307; 81000-TC; 82140-TC; 82607; 82728; 82746; 82962; 83540-TC; 83550-TC; 83605; 84439; 84443-TC; 84484; 84702-TC; 85007; 85025; 85027; 85610-TC; 85730-TC; 87040-TC; 87070; 87070-TC; 87075-TC; 87081; 87186-TC; 88304; 88305; 90715; 93005; 94010; 94640; 94760; 96361; 96365; 96375; 99285; J0692; J1170; J1815; J1885; J2250; J2270; J2704; J3010; J3370; J3480; J3490; J7030; J7050; J7060; J7120

== ENCOUNTER 2017-12-21 18:52 | Emergency (ER) | payer BC, MEDICAID ==
[~2017-12-21] VITALS: Ht 165.1 cm; Wt 56.7 kg
[~2017-12-21 18:52] MED LIST changes: -BUPR1FIL SL; -DULO20CA PO; +DULO60CA41 PO; +HYDR-1189 PO; +METF-795 PO; -NORT10CA PO; +QUET400T PO; +SER25 PO
[2017-12-21 19:00] VITALS: BP_SYST 142
[2017-12-21] MEDS ORDERED: KETOROLAC TROMETHAMINE 60 MG/2 ML VIAL IM ONE (19:45)
[2017-12-21 20:10] VITALS: BP_SYST 133
== END 2017-12-21 20:10 | disposition home or self-care (01) ==
LOC: SED 18:52
DX: S93.401A Sprain of unspecified ligament of right ankle, initial encounter (principal); L03.116 Cellulitis of left lower limb; F17.210 Nicotine dependence, cigarettes, uncomplicated; E11.9 Type 2 diabetes mellitus without complications; E78.5 Hyperlipidemia, unspecified; F41.9 Anxiety disorder, unspecified; Z79.899 Other long term (current) drug therapy; W01.0XXA Fall on same level from slipping, tripping and stumbling without subsequent striking against object, initial encounter; Y93.89 Activity, other specified; Y92.000 Kitchen of unspecified non-institutional (private) residence as the place of occurrence of the external cause; Y99.8 Other external cause status
CPT/HCPCS: 73610; 96372; 99284; J1885